=== PATIENT | female | born 2000 | race Caucasian/White ===

== ENCOUNTER 2022-03-28 20:34 | Emergency (ER) | payer OTHER ==
[~2022-03-28 20:34] MED LIST: AUGMENTIN 875-1 EACH PO; DIFLUCAN150 MG PO; PROVENTIL HFA6.7 GM INH
[2022-03-28 21:46] LABS: HEMOGLOBIN 14.8 gm/dl (12.3-15.3); RED BLOOD COUNT 4.66 M/UL (4.00-5.10); WHITE BLOOD COUNT 8.3 K/UL (4.5-11.0)
[2022-03-28 22:14] LABS: BUN/CREATININE RATIO 15 (0-10)
== END 2022-03-28 23:15 | disposition home or self-care (01) ==
LOC: ER1 20:34
PROVIDERS: Nurse Practitioner
DX: R07.89 Other chest pain (principal); J45.909 Unspecified asthma, uncomplicated
CPT/HCPCS: 71045; 80053; 81001; 82550; 82553; 84439; 84443; 84484; 84703; 85025; 85379; 93005; 99285; J7030

== ENCOUNTER 2022-06-13 03:13 | Emergency (ER) | payer OTHER ==
[2022-06-13] MEDS ORDERED: ZOFRAN ODT 4 MG4 MG PO (05:10)
== END 2022-06-13 05:07 | disposition home or self-care (01) ==
LOC: ER1 03:13
DX: R51.9 Headache, unspecified (principal); R11.0 Nausea
CPT/HCPCS: 96361; 96374; 96375; 99283; J1885; J2405